=== PATIENT | male | born 1975 | race Caucasian/White ===

== ENCOUNTER 2023-07-18 09:14 | Emergency (ER) | payer MEDICAID ==
[~2023-07-18] VITALS: Ht 167.6 cm; Wt 103.4 kg
[2023-07-18] MEDS ORDERED: IBUP-1955 PO (13:37)
[2023-07-18] MEDS ORDERED: OXYC5CAP18 PO (13:37)
[2023-07-18] MEDS ORDERED: CYCL10TA9 PO (13:37)
[2023-07-18] MEDS ORDERED: HYDROCODONE/APAP 5/325MG TABLET ONE (13:44)
[2023-07-18] MEDS ORDERED: KETOROLAC TROMETHAMINE 15 MG/ML VIAL ONE (13:44)
[2023-07-18] MEDS ORDERED: CYCLOBENZAPRINE 10 MG TABLET ONE (13:45)
[2023-07-18 13:59] VITALS: BP 128/82; TEMP 98; O2SAT 97
[2023-07-18] MEDS ORDERED: CYCLOBENZAPRINE 10 MG TABLET PO ONE (14:00)
[2023-07-18] MEDS ORDERED: HYDROCODONE/APAP 5/325MG TABLET PO ONE (14:00)
[2023-07-18] MEDS ORDERED: KETOROLAC TROMETHAMINE 15 MG/ML VIAL IM ONE (14:00)
== END 2023-07-18 13:59 | disposition home or self-care (01) ==
LOC: ER 09:39
DX: G89.29 Other chronic pain (principal); M54.9 Dorsalgia, unspecified; Z76.0 Encounter for issue of repeat prescription; Z98.890 Other specified postprocedural states; Z79.899 Other long term (current) drug therapy
CPT/HCPCS: 99283; 96372; J1885

== ENCOUNTER 2023-09-05 08:22 | Emergency (ER) | payer MEDICAID, OTHER ==
[~2023-09-05] VITALS: Ht 170.2 cm; Wt 108.9 kg
[~2023-09-05 08:22] MED LIST: CYCL10TA9 PO; IBUP-1955 PO; OXYC5CAP18 PO
[2023-09-05 08:38] VITALS: BP 140/89; TEMP 98.2; O2SAT 98
[2023-09-05] MEDS ORDERED: IBUP-1955 PO (08:58)
[2023-09-05] MEDS ORDERED: HYDR-4303 PO (08:58)
[2023-09-05] MEDS ORDERED: CYCL5TAB PO (08:58)
[2023-09-05] MEDS ORDERED: LIDO30AD10 TP (08:58)
[2023-09-05] MEDS ORDERED: METH4TAB3 PO (08:59)
[2023-09-05] MEDS ORDERED: KETOROLAC TROMETHAMINE 15 MG/ML VIAL ONE (09:08)
[2023-09-05] MEDS ORDERED: HYDROCODONE/APAP 10/325MG TABLET ONE (09:08)
[2023-09-05] MEDS: KETOROLAC TROMETHAMINE 15 MG/ML VIAL IM ONE (09:14)
[2023-09-05] MEDS: HYDROCODONE/APAP 10/325MG TABLET PO ONE (09:15)
== END 2023-09-05 09:17 | disposition home or self-care (01) ==
LOC: ER 08:36
DX: M54.41 Lumbago with sciatica, right side (principal); G40.909 Epilepsy, unspecified, not intractable, without status epilepticus; Z79.899 Other long term (current) drug therapy; Z76.0 Encounter for issue of repeat prescription
CPT/HCPCS: 99283; 96372; J1885

== ENCOUNTER 2024-05-17 16:46 | Emergency (ER) | payer OTHER ==
[~2024-05-17] VITALS: Ht 170.2 cm; Wt 106.6 kg
[~2024-05-17 16:46] MED LIST changes: -CYCL10TA9 PO; +CYCL5TAB PO; +HYDR-4303 PO; +LIDO30AD10 TP; +METH4TAB3 PO; -OXYC5CAP18 PO
[2024-05-17 17:11] VITALS: BP 122/106; TEMP 98.3; O2SAT 99
[2024-05-17] MEDS ORDERED: ACET1TAB23 PO (18:35)
[2024-05-17] MEDS ORDERED: ACET-907 PO (18:37)
[2024-05-17] MEDS ORDERED: KETOROLAC TROMETHAMINE 15 MG/ML VIAL ONE (18:59)
[2024-05-17] MEDS ORDERED: OXYC-128 PO (18:59)
[2024-05-17] MEDS ORDERED: ACETAMINOPHEN W/ CODEINE#3 1 EA TABLET PO ONE (19:00)
[2024-05-17] MEDS: KETOROLAC TROMETHAMINE 15 MG/ML VIAL IM ONE (19:02)
[2024-05-18] MEDS ORDERED: ACET1TAB23 PO (10:29)
== END 2024-05-17 19:11 | disposition home or self-care (01) ==
LOC: ER 16:46
DX: G89.29 Other chronic pain (principal); M54.59 Other low back pain; Z76.0 Encounter for issue of repeat prescription; Z86.69 Personal history of other diseases of the nervous system and sense organs; Z87.39 Personal history of other diseases of the musculoskeletal system and connective tissue; H54.7 Unspecified visual loss; Z60.2 Problems related to living alone; Z87.828 Personal history of other (healed) physical injury and trauma
CPT/HCPCS: 99283; 96372; J1885